=== PATIENT | male | born 1965 | race Caucasian/White ===

== ENCOUNTER → 2016-06-28 | Outpatient (CLI) | payer BC ==
[~2016-06-28] MED LIST: METO50TA7 PO; RANI150T3 PO; SIMV40TA2 PO; SYN112 PO
[2016-06-28 13:30] LABS: ALB/GLOB RATIO 1.3 (0.9-2); ALT/SGPT 40 U/L (12-78); AST/SGOT 17 U/L (15-37); BLOOD UREA NITROGEN 17 mg/dl (7-18); BUN/CREATININE RATIO 16.6 (10-20); CALCIUM 8.9 mg/dl (8.5-10.1); CARBON DIOXIDE 29 mmol/L (21-32); CHLORIDE 106 mmol/L (98-107); GLUCOSE 92 mg/dl (70-99); POTASSIUM 3.8 mmol/L (3.5-5.1); SODIUM 144 mmol/L (136-145)
[2016-06-28 13:41] LABS: ALKALINE PHOSPHATASE 89 U/L (45-117); CHOLESTEROL 130 mg/dl (0-200); CHOLESTEROL/HDL RATIO 2.7; HDL CHOLESTEROL 49 mg/dl; LDL CHOLESTEROL CALCULATED 68 mg/dl; TRIGLYCERIDES 63 mg/dl (0-150); VERY LOW DENSITY LIPOPROT CALC 13 mg/dl
== END | disposition home or self-care (01) ==
LOC: C.LABPVFM 08:40
PROVIDERS: ATTEND Family Medicine
DX: E03.9 Hypothyroidism, unspecified (principal); E78.2 Mixed hyperlipidemia; I10 Essential (primary) hypertension

== ENCOUNTER → 2017-03-31 | Outpatient (CLI) | payer BC ==
[2017-03-31 13:45] LABS: ALT/SGPT 36 U/L (12-78); AST/SGOT 17 U/L (15-37); BLOOD UREA NITROGEN 16 mg/dl (7-18); BUN/CREATININE RATIO 15.7 (10-20); CARBON DIOXIDE 27 mmol/L (21-32); CHLORIDE 106 mmol/L (98-107); CHOLESTEROL 149 mg/dl (0-200); CREATININE 0.99 mg/dl (0.60-1.40); GLUCOSE 93 mg/dl (70-99); POTASSIUM 4.1 mmol/L (3.5-5.1); SODIUM 140 mmol/L (136-145); TRIGLYCERIDES 86 mg/dl (0-150); VERY LOW DENSITY LIPOPROT CALC 17 mg/dl
[2017-03-31 13:56] LABS: ALB/GLOB RATIO 1.2 (0.9-2); ALKALINE PHOSPHATASE 78 U/L (45-117); CHOLESTEROL/HDL RATIO 2.7; HDL CHOLESTEROL 56 mg/dl; LDL CHOLESTEROL CALCULATED 76 mg/dl
== END | disposition home or self-care (01) ==
LOC: C.LABPVFM 09:49
PROVIDERS: ATTEND Family Medicine
DX: Z12.5 Encounter for screening for malignant neoplasm of prostate (principal); E03.9 Hypothyroidism, unspecified; E78.2 Mixed hyperlipidemia; I10 Essential (primary) hypertension

== ENCOUNTER → 2017-06-04 | Outpatient (CLI) | payer OTHER ==
[2017-06-04 13:24] LABS: BLOOD UREA NITROGEN 20 mg/dl (7-18); CALCIUM 9.1 mg/dl (8.5-10.1); CARBON DIOXIDE 28 mmol/L (21-32); GLUCOSE 91 mg/dl (70-99); POTASSIUM 3.7 mmol/L (3.5-5.1); SODIUM 138 mmol/L (136-145)
== END | disposition home or self-care (01) ==
LOC: C.LABPVFM 08:58
PROVIDERS: ATTEND Family Medicine
DX: I10 Essential (primary) hypertension (principal)

== ENCOUNTER 2017-08-08 07:56 | Emergency (ER) | payer OTHER ==
[~2017-08-08] VITALS: Ht 182.9 cm; Wt 113.9 kg
[~2017-08-08 07:56] MED LIST changes: -METO50TA7 PO; +METO50TA8 PO
[2017-08-08 08:01] VITALS: TEMP 36.7; Ht 182.9 cm; Wt 113.9 kg
[2017-08-08] MEDS ORDERED: CHLORHEXIDINE GLUCONATE 4% SOL 4OZ BTL ONE (08:30)
[2017-08-08] MEDS ORDERED: AMLO-110 PO (09:07)
[2017-08-08] MEDS ORDERED: ATOR-24 PO (09:07)
[2017-08-08] MEDS ORDERED: LEVO125T5 PO (09:07)
[2017-08-08] MEDS ORDERED: SILVER SULFADIAZINE 1% CR 50 GM JAR EXT ONE (09:22)
[2017-08-08] MEDS ORDERED: NURSING VERBAL MED ORDER ONE (09:30)
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
[2017-08-08] MEDS ORDERED: SILV1CRE73 TOP (09:53)
[2017-08-08] MEDS ORDERED: OXYC-57 PO (09:53)
[2017-08-08 10:35] VITALS: BP 149/82; PULSE 82; O2SAT 96
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
== END 2017-08-08 10:37 | disposition home or self-care (01) ==
LOC: C.EDB 07:59 → C.EDA 10:37
DX: T23.01 Burn of unspecified degree of thumb (nail) (principal); T31.0 Burns involving less than 10% of body surface; W40.9XXA Explosion of unspecified explosive materials, initial encounter; Y26.XXXA Exposure to smoke, fire and flames, undetermined intent, initial encounter; Z87.891 Personal history of nicotine dependence; Z79.899 Other long term (current) drug therapy

== ENCOUNTER 2020-12-17 18:53 | Observation (INO) ==
[2020-12-17] MEDS ORDERED: SODIUM CHLORIDE 0.9% 1000ML 1,000 ML IV ONE (20:56)
--- NOTE | 2020-12-17 21:06 | Emergency Department Note ---
History of Present Illness General Chief complaint: Hypertension Stated complaint: HIGH BLOOD PRESSURE, HEADACHES Time Seen by Provider: 12/17/20 20:46 Source: patient History of Present Illness Provider complaint: Headache and fatigue Onset (ago): week(s) 2 Location: head Radiation: non-radiation Severity: moderate Pain Consistency: + intermittent Maximum Pain Intensity: 5 Quality: + other (Throbbing) Relieved By: + medication (Ibuprofen) Associated symptoms: + headaches and + other (Fatigue); no chest pain, no cough, no fever/chills, no nausea/vomiting or no shortness of breath This is a 55-year-old male who presents with a 2-week history of fatigue and headache. He states the headache is located on the back of his head. It feels like a throbbing sensation. It is intermittent and present about every other day. He states it is better when he takes ibuprofen. No associated fever or vomiting. He also states that over the past 3 days he has been checking his blood pressure and has been elevated. He does have a history of hypertension and is on hydrochlorothiazide for it. He has been compliant with this medication. Previously he was on amlodipine but that was stopped 6 months ago due to swelling in his legs. He denies any chest discomfort or pain, cough or cold symptoms, shortness of breath, abdominal pain, vomiting, diarrhea, urinary symptoms or any prior history of headaches. Home Medications Medication Instructions Recorded Confirmed Type hydrochlorothiazide 25 mg tablet 25 mg PO DAILY #90 tab 05/21/20 12/17/20 Rx atorvastatin 40 mg tablet 40 mg PO HS 12/17/20 12/17/20 History famotidine 40 mg tablet 40 mg PO DAILY 12/17/20 12/17/20 History levothyroxine 125 mcg tablet 125 mcg PO QAM 12/17/20 12/17/20 History Allergies Allergy/AdvReac Type Severity Reaction Status Date / Time lisinopril Allergy Mild Cough Verified 12/17/20 22:45 Past Med/Surg History Medical History Benign hypertension Hyperlipidemia Hypothyroidism Surgical History H/O hernia repair Family History Denies family history of Ovarian cancer Prostate cancer Diabetes Myocardial infarction Breast cancer Colorectal cancer Hypertension Social History Smoking Status: Former smoker Second Hand Exposure: No; Hx Alcohol Use: Yes Hx Substance Use: No Preferred Language: Kyrgyz marital status: Single Current Living Situation: Other Current Living Situation Comment: [place] current occupational status: employed current occupation: [employer] Feels Safe at Home: Yes caffeine: Yes (coffee tea and soda ) Dental Care, Regularly: Yes Physical Activity Frequency: 3-4 Times per Week Seatbelt Use: always Sunscreen Use: Yes (Sometimes) Review of Systems See HPI for pertinent positives & negatives. and A total of 10 systems reviewed and were otherwise negative Physical Exam Vital Signs Vital Signs - 24 hr 12/17/20 19:21 12/17/20 21:25 12/17/20 21:40 Temperature 36.4 C L Temperature Source Temporal Artery Scan Pulse Rate 70 66 Pulse Rate [Apical] 60 Pulse Rate from SpO2 Sensor 65 Respiratory Rate 18 18 15 Blood Pressure 169/110 H 118/84 Blood Pressure [Left Arm] 149/110 H Blood Pressure [Right Arm] Blood Pressure Mean 129 95 Blood Pressure Mean [Left Arm] 123 Blood Pressure Mean [Right Arm] Blood Pressure Position [Left Arm] Blood Pressure Position [Right Arm] Pulse Oximetry 97 97 98 Oxygen Delivery Method Room Air Room Air Room Air Sepsis New/Unexplained Change in Mental Status N/A Sepsis Action Taken by Nursing No Action Required 12/17/20 21:56 12/17/20 22:00 12/17/20 22:03 Temperature Temperature Source Pulse Rate 67 74 Pulse Rate [Apical] Pulse Rate from SpO2 Sensor 67 71 Respiratory Rate 14 17 Blood Pressure 173/115 H 204/137 H Blood Pressure [Left Arm] 173/115 H Blood Pressure [Right Arm] 190/120 H Blood Pressure Mean 134 159 Blood Pressure Mean [Left Arm] 134 Blood Pressure Mean [Right Arm] 143 Blood Pressure Position [Left Arm] Sitting Blood Pressure Position [Right Arm] Sitting Pulse Oximetry 99 99 Oxygen Delivery Method Sepsis New/Unexplained Change in Mental Status Sepsis Action Taken by Nursing 12/17/20 22:25 12/17/20 22:30 12/17/20 23:00 Temperature Temperature Source Pulse Rate 67 65 62 Pulse Rate [Apical] Pulse Rate from SpO2 Sensor 67 66 62 Respiratory Rate 19 19 14 Blood Pressure 185/124 H 189/127 H 180/118 H Blood Pressure [Left Arm] Blood Pressure [Right Arm] Blood Pressure Mean 144 147 138 Blood Pressure Mean [Left Arm] Blood Pressure Mean [Right Arm] Blood Pressure Position [Left Arm] Blood Pressure Position [Right Arm] Pulse Oximetry 98 98 98 Oxygen Delivery Method Room Air Sepsis New/Unexplained Change in Mental Status Sepsis Action Taken by Nursing Constitutional: Vital signs reviewed. Eyes: Pupils are equal round reactive to light. Conjunctiva are noninjected. ENT: Pharynx is clear without erythema or exudate. Mucous membranes are moist. Neck supple without meningeal signs. Respiratory: Clear to auscultation bilaterally. Breath sounds are equal bilaterally. Cardiovascular: Regular rate and rhythm. No rubs or gallops. GI: Soft, nondistended and nontender. Bowel sounds are present. Musculoskeletal: No peripheral edema. No lower extremity tenderness. Integumentary: No cyanosis. or jaundice. Neurologic: The patient is awake and alert. Cranial nerves II-XII are intact. Motor is 5 out of 5 all extremities. Sensation is intact to light touch all extremities. Normal speech. No pronator drift. No limb ataxia. Psychiatric: Normal affect. Course Administered Medications Nitroglycerin (Nitroglycerin 2% Ointment 30gm Tube) 1 inch EXT Q6H NESTOR Stop: 01/16/21 22:59 Last Admin: 12/17/20 23:15 Dose: 1 inch Documented by: [id number] Discontinued Medications Sodium Chloride (Nss 1000ml) 1,000 mls @ 999 mls/hr IV .Q1H1M ONE Stop: 12/17/20 21:56 Last Infusion: 12/17/20 22:24 Dose: 0 mls/hr Documented by: [id number] Admin: 12/17/20 21:20 Dose: 999 mls/hr Documented by: [id number] Labetalol HCl (Labetalol Hcl Iv 5 Mg/Ml 20ml) 10 mg IV NOW STA Stop: 12/17/20 22:00 Last Admin: 12/17/20 22:05 Dose: 10 mg Documented by: [id number] Cosigned by: [id number] Metoprolol Succinate (Metoprolol Succ 25mg Ext Rel Tab) 25 mg PO NOW STA Stop: 12/17/20 23:03 Last Admin: 12/17/20 23:19 Dose: 25 mg Documented by: [id number] Critical Care Time Critical Care Time: Yes Total Critical Care Time: 35 I have personally spent approximately 35 minutes of critical care time in the direct management of this patient. This includes bedside care, interpretation of diagnostic studies, and testing, discussion with consultants, patient, and family members, and other required patient management activities. These minutes are in excess of all separately billable procedures. Medical Decision Making Differential Diagnosis Hypertensive urgency, medication noncompliance, migraine headache, intracranial mass, intracranial hemorrhage, endorgan damage Medical Records Attestation: I reviewed the patient's medical records. I did perform a limited focused review of portions of the patient's old chart on the electronic medical record. The patient has had no recent pertinent visits to this hospital. Home Medications Current Medication List: was personally reviewed by me Laboratory Data Attestation: I reviewed the patient's lab results. Result diagrams: 12/17/20 21:03 12/17/20 21:03 Lab Results 12/17/20 12/17/20 12/17/20 Range/Units 21:03 21:03 21:03 WBC 5.95 (4.8-10.8) K/uL RBC 5.27 (4.7-6.1) M/uL Hgb 15.7 (14.0-18.0) g/dL Hct 44.7 (42-52) % MCV 84.8 (80-100) fL MCH 29.8 (25-34) pg MCHC 35.1 (32-36) g/dL RDW Std Deviation 39.2 (36.4-46.3) fL RDW Coeff of Tanya 12.7 (11.5-14.5) % Plt Count 168 (130-400) K/uL MPV 10.1 (7.4-10.4) fL Immature Gran % (Auto) 0.0 % Neut % (Auto) 54.6 % Lymph % (Auto) 32.6 % [place] % (Auto) 10.3 % Eos % (Auto) 1.8 % Baso % (Auto) 0.7 % Neut # (Auto) 3.25 (1.4-6.5) K/uL Lymph # (Auto) 1.94 (1.2-3.4) K/uL [place] # (Auto) 0.61 H (0.11-0.59) K/uL Eos # (Auto) 0.11 (0-0.5) K/uL Baso # (Auto) 0.04 (0-0.2) K/uL Immature Gran # (Auto) 0.00 (0.00-0.02) K/uL Sodium 142 (136-145) mmol/L Potassium 3.4 L (3.5-5.1) mmol/L Chloride 108 H (98-107) mmol/L Carbon Dioxide 29 (21-32) mmol/L Anion Gap 5.0 (3-11) BUN 18 (7-18) mg/dl Creatinine 1.34 (0.6-1.4) mg/dl Est Cr Clr Drug Dosing 80.8 ml/min Est GFR ( Amer) 68.6 ml/min Est GFR (Non-Af Amer) 59.2 ml/min BUN/Creatinine Ratio 13.1 (10-20) Glucose 95 (70-99) mg/dl Calcium 9.1 (8.5-10.1) mg/dl Total Bilirubin 0.8 (0.2-1) mg/dl AST 24 (15-37) U/L ALT 47 (12-78) U/L Alkaline Phosphatase 75 (45-117) U/L Troponin I 0.301 H* (0-0.045) ng/ml Total Protein 7.2 (6.4-8.2) gm/dl Albumin 3.9 (3.4-5.0) gm/dl Globulin 3.3 (2.5-4.0) gm/dl Albumin/Globulin Ratio 1.2 (0.9-2) Lyme Disease IgG Ab Negative (Negative) Lyme Disease IgM Ab Negative (Negative) COVID-19 Eval Order SARS-CoV-2 (PCR) (Negative) 12/17/20 12/17/20 Range/Units 22:06 22:06 WBC (4.8-10.8) K/uL RBC (4.7-6.1) M/uL Hgb (14.0-18.0) g/dL Hct (42-52) % MCV (80-100) fL MCH (25-34) pg MCHC (32-36) g/dL RDW Std Deviation (36.4-46.3) fL RDW Coeff of Tanya (11.5-14.5) % Plt Count (130-400) K/uL MPV (7.4-10.4) fL Immature Gran % (Auto) % Neut % (Auto) % Lymph % (Auto) % [place] % (Auto) % Eos % (Auto) % Baso % (Auto) % Neut # (Auto) (1.4-6.5) K/uL Lymph # (Auto) (1.2-3.4) K/uL [place] # (Auto) (0.11-0.59) K/uL Eos # (Auto) (0-0.5) K/uL Baso # (Auto) (0-0.2) K/uL Immature Gran # (Auto) (0.00-0.02) K/uL Sodium (136-145) mmol/L Potassium (3.5-5.1) mmol/L Chloride (98-107) mmol/L Carbon Dioxide (21-32) mmol/L Anion Gap (3-11) BUN (7-18) mg/dl Creatinine (0.6-1.4) mg/dl Est Cr Clr Drug Dosing ml/min Est GFR ( Amer) ml/min Est GFR (Non-Af Amer) ml/min BUN/Creatinine Ratio (10-20) Glucose (70-99) mg/dl Calcium (8.5-10.1) mg/dl Total Bilirubin (0.2-1) mg/dl AST (15-37) U/L ALT (12-78) U/L Alkaline Phosphatase (45-117) U/L Troponin I (0-0.045) ng/ml Total Protein (6.4-8.2) gm/dl Albumin (3.4-5.0) gm/dl Globulin (2.5-4.0) gm/dl Albumin/Globulin Ratio (0.9-2) Lyme Disease IgG Ab (Negative) Lyme Disease IgM Ab (Negative) COVID-19 Eval Order Covid19 at [facility] SARS-CoV-2 (PCR) NEGATIVE (Negative) Imaging Data Radiologist's Impression: Patient: CESARIO MARR (Male) : 65 Status: ER Date: 12/17/20 21:35 Room #: History: ELEVATED BP HEADACHE Slices: 58 Priors: Tech: Gigi Covington @ [phone] Exams: CT HEAD Contrast: Accession Numbers: [id number] Referring Physician: KASHMIR DOSS Preliminary Findings Only See Final Report For Complete Findings CT HEAD: No acute intracranial process. Radiologist: Rich Shelton M.D. Study ready at 21:35 and initial results transmitted at 21:43 ECG Data Attestation: I personally reviewed and interpreted this ECG as follows: Indication: + other (Hypertension) Rate (beats per minute): 66 Rhythm: + normal sinus ECG [place]: + Normal ECG ST segments: no ST elevation ECG Findings: no PVCs MDM Narrative I did evaluate the patient as noted above. The patient is presenting with a 2- week history of fatigue and headaches. He also noticed that over the past 3 days his blood pressure is elevated. On exam he is in no acute distress. He is neurologically intact. IV access was established. I did place an order for continuous cardiac monitoring. The monitor showed normal sinus rhythm at a rate of 69 bpm. I did order and personally review the patient's 12-lead EKG as described above. There is no evidence of acute ischemia. I did order and review the patient's blood work as noted in the electronic medical record. CBC is unremarkable without leukocytosis or anemia. Electrolytes demonstrate a potassium of 3.4 but otherwise are unremarkable as well. Troponin is elevated slightly at 0.301. He denies having any chest discomfort or shortness of breath or symptoms consistent with ACS. I did order a CT of the head. I did review t he images myself as well as the radiology report as described above. There is no evidence of acute intracranial abnormality. I did reassess the patient. His blood pressure is still elevated and so I did treat him with labetalol 10 mg IV. I did discuss the test results with him and his and recommended hospitalization. Covid testing is negative. I did discuss case with the counter caser and the hospitalist was informed. On reassessment his blood pressure still elevated. I was going to treat him further with IV meds but the hospitalist team did see him already and ordered beta blockers as well as nitroglycerin for him. Impression & Plan Hypertensive emergency, Headache, Elevated troponin, Acute hypokalemia Discharge Plan Visit Data Chief Complaint: Hypertension Stated Complaint: HIGH BLOOD PRESSURE, HEADACHES ED Provider: Kashmir Doss Discharge Problem: Hypertensive emergency, Headache, Elevated troponin, Acute hypokalemia Patient Disposition: Admitted As Inpatient Discharge Instructions Interventions: ED Discharge Assessment Last Done: 12/17/20 23:33 Forms Stand Alone Forms: My [facility] Prescriptions Prescriptions: No Action hydrochlorothiazide 25 mg tablet 25 mg PO DAILY Qty: 90 RF: 3 atorvastatin 40 mg tablet 40 mg PO HS RF: 0 levothyroxine 125 mcg tablet 125 mcg PO QAM RF: 0 famotidine 40 mg Tablet 40 mg PO DAILY RF: 0 Referrals Referrals: Ritika Crawford MD [Primary Care Provider] -
[2020-12-17 21:20] LABS: Basophils # (auto) 0.04 K/uL (0-0.2); Basophils % (auto) 0.7 %; Eosinophils # (auto) 0.11 K/uL (0-0.5); Eosinophils % (auto) 1.8 %; Hematocrit (blood only) 44.7 % (42-52); Hemoglobin 15.7 g/dL (14.0-18.0); Lymphocytes # (auto) 1.94 K/uL (1.2-3.4); Lymphocytes % (auto) 32.6 %; Mean Corpuscular Hemoglobin 29.8 pg (25-34); Mean Corpuscular Hgb Conc 35.1 g/dL (32-36); Mean Corpuscular Volume 84.8 fL (80-100); Mean Platelet Volume 10.1 fL (7.4-10.4); Monocytes # (auto) 0.61 K/uL (0.11-0.59); Monocytes % (auto) 10.3 %; Neutrophils # (auto) 3.25 K/uL (1.4-6.5); Neutrophils % (auto) 54.6 %; Platelet Count 168 K/uL (130-400); RDW Coefficient of Variation 12.7 % (11.5-14.5); RDW Standard Deviation 39.2 fL (36.4-46.3); Red Blood Count 5.27 M/uL (4.7-6.1); White Blood Count 5.95 K/uL (4.8-10.8)
[2020-12-17 21:37] LABS: Albumin Level 3.9 gm/dl (3.4-5.0); BUN Creatinine Ratio 13.1 (10-20); Calcium 9.1 mg/dl (8.5-10.1); Creatinine Clr Calc Pharmacy 80.8 ml/min; Est GFR (African American) 68.6 ml/min; Est GFR (Non-African American) 59.2 ml/min; Potassium 3.4 mmol/L (3.5-5.1)
[2020-12-17 21:43] LABS: Albumin Globulin Ratio 1.2 (0.9-2); Bilirubin,Total 0.8 mg/dl (0.2-1); Globulin 3.3 gm/dl (2.5-4.0); Total Protein 7.2 gm/dl (6.4-8.2); Troponin I 0.301 ng/ml (0-0.045)
[2020-12-17] MEDS ORDERED: LABETALOL HCL IV 5 MG/ML 20ML IV STA (21:59)
[2020-12-17 22:11] LABS: Lyme Ab IgG w/WB Rflx Negative (Negative)
[2020-12-17 22:12] LABS: Lyme Ab IgM w/WB Rflx Negative (Negative)
[2020-12-17] MEDS ORDERED: METOPROLOL SUCC 25MG EXT REL TAB PO STA (23:02)
--- NOTE | 2020-12-17 23:03 | History & Physical Report ---
Date of Service December 17, 2020 Assessment & Plan (1) Elevated troponin: Plan: Elevated troponin/uncontrolled hypertension- The patient will be admitted to telemetry for serial cardiac enzymes, serial EKG's, cardiac rhythm monitoring and a 2-D echocardiogram with Dopplers. Troponin 0.301 upon admission Patient was given labetalol 10 mg IV by the ED with some improvement in blood pressure control, which did worsen somewhat with the addition of 1 L normal saline. Placed on Nitropaste 1 inch anterior chest wall every 6 hours Give metoprolol succinate 25 mg p.o. now Lopressor 5 mg IV every 4 hours as needed systolic blood pressure greater than 160 There is likely a significant anxiety component Consult cardiology (2) Uncontrolled hypertension: Plan: See above (3) Headache: Plan: Secondary to uncontrolled hypertension (4) Hypothyroidism: Plan: Continue levothyroxine 25 mcg daily (5) Hyperlipidemia: Plan: Continue to atorvastatin 40 mg daily. Check a fasting lipid panel and hemoglobin A1c (6) GERD (gastroesophageal reflux disease): Plan: Continue famotidine History of Present Illness Chief Complaint: The patient presents to the emergency department with complaint of elevated blood pressure, headaches and fatigue that initially began a few months ago, but have worsened over the past 2 weeks. Primary Care Provider: Ritika Crawford MD The patient is a 55-year-old male with a past medical history including hypertension, hypothyroidism, hyperlipidemia, and GERD who presents with symptoms noted above. He reports that a few months ago, when he has been paying closer attention to his diet, watching total calorie intake and salt intake, that his blood pressure was in the 120s over 80s. For the past few weeks, when he started to check it again due to headaches, his pressure has been in the 160s 170s over 100s 110s. 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 He has not been paying nearly as close attention to his diet as he had been. He denies any chest pain or shortness of breath, and says that he walks up to 12 miles a day at work. Pertinent laboratories: Potassium 3.4, creatinine 1.34, troponin 0.301, the patient is COVID-19 negative and Lyme disease negative. EKG shows normal sinus rhythm at 66, with no acute ST-T changes. Chest x-ray was not ordered, and is being ordered at this time. In the ED, patient received labetalol 10 mg IV x1, that was given 1 L normal saline by the ED. Allergies Allergy/AdvReac Type Severity Reaction Status Date / Time lisinopril Allergy Mild Cough Verified 12/17/20 22:45 Home Medications Medication Instructions Recorded Confirmed Type hydrochlorothiazide 25 mg tablet 25 mg PO DAILY #90 tab 05/21/20 12/17/20 Rx atorvastatin 40 mg tablet 40 mg PO HS 12/17/20 12/17/20 History famotidine 40 mg tablet 40 mg PO DAILY 12/17/20 12/17/20 History levothyroxine 125 mcg tablet 125 mcg PO QAM 12/17/20 12/17/20 History Past Med/Surg History Medical History Benign hypertension Hyperlipidemia Hypothyroidism Surgical History H/O hernia repair Family History Denies family history of Ovarian cancer Prostate cancer Diabetes Myocardial infarction Breast cancer Colorectal cancer Hypertension Social History Smoking Status: Former smoker Second Hand Exposure: No; Hx Alcohol Use: Yes Hx Substance Use: No Preferred Language: Setswana marital status: Single Current Living Situation: Other Current Living Situation Comment: Fiann current occupational status: employed current occupation: [employer] Feels Safe at Home: Yes caffeine: Yes (coffee tea and soda ) Dental Care, Regularly: Yes Physical Activity Frequency: 3-4 Times per Week Seatbelt Use: always Sunscreen Use: Yes (Sometimes) Review of Systems Review of Systems: The patient denies palpitations, shortness of breath, dyspnea on exertion, cough, lower extremity swelling, sore throat, fevers, chills, sweats, nausea, vomiting, diarrhea , constipation, abdominal pain, pelvic pain, blood in urine or stool, dysuria, urinary frequency or urgency, lightheadedness, dizziness, memory loss, loss of consciousness, rash, abnormal bruising or bleeding, imbalance, focal or generalized weakness, numbness or tingling in arms or legs, generalized arthralgias or myalgias, back or neck pain, or night sweats. The review of systems is otherwise negative other than for that already noted above, and at least 10 systems have been reviewed. Physical Exam Physical Exam: The patient is awake, alert and oriented 3, well developed and well nourished, normocephalic and atraumatic, lying in bed and in no acute distress. HEENT--PERRL, EOMI, mucous membranes and oropharynx normal. Neck--supple. No JVD. No bruits. Thyroid normal, trachea midline, no adenopathy. Heart--normal S1 and S2. No murmurs, rubs or gallops. Lungs--clear bilaterally, no respiratory distress, no accessory muscle use. Abdomen--normal bowel sounds and soft. Nontender. Nondistended. Extremities--no cyanosis or clubbing. No edema. Dermatologic--normal skin turgor, normal color, no abnormal lymph nodes, no rash. Neurologic--cranial nerves II through XII grossly intact. Rheumatologic--normal range of motion. Psychiatric--normal affect. Results & Data Results & Data ([facility]) Vital Signs (Past 12 Hours) Vital Signs Temp Pulse Pulse Resp BP BP BP 12/17/20 22:30 65 19 189/127 H 12/17/20 22:25 67 19 185/124 H 12/17/20 22:03 173/115 H 190/120 H 12/17/20 22:00 74 17 204/137 H 12/17/20 21:56 67 14 173/115 H 12/17/20 21:40 66 15 118/84 12/17/20 21:25 60 18 149/110 H 12/17/20 19:21 97.5 F L 70 18 169/110 H Pulse Ox 12/17/20 22:30 98 12/17/20 22:25 98 12/17/20 22:03 12/17/20 22:00 99 12/17/20 21:56 99 12/17/20 21:40 98 12/17/20 21:25 97 12/17/20 19:21 97 Laboratory Results Laboratory Results WBC 5.95 K/uL (4.8-10.8) 12/17/20 21:03 RBC 5.27 M/uL (4.7-6.1) 12/17/20 21:03 Hgb 15.7 g/dL (14.0-18.0) 12/17/20 21:03 Hct 44.7 % (42-52) 12/17/20 21:03 MCV 84.8 fL (80-100) 12/17/20 21:03 MCH 29.8 pg (25-34) 12/17/20 21:03 MCHC 35.1 g/dL (32-36) 12/17/20 21:03 RDW Std Deviation 39.2 fL (36.4-46.3) 12/17/20 21:03 RDW Coeff of Tanya 12.7 % (11.5-14.5) 12/17/20 21:03 Plt Count 168 K/uL (130-400) 12/17/20 21:03 MPV 10.1 fL (7.4-10.4) 12/17/20 21:03 Immature Gran % (Auto) 0.0 % 12/17/20 21:03 Neut % (Auto) 54.6 % 12/17/20:03 Lymph % (Auto) 32.6 % 12/17/20 21:03 [place] % (Auto) 10.3 % 12/17/20 21:03 Eos % (Auto) 1.8 % 12/17/20 21:03 Baso % (Auto) 0.7 % 12/17/20 21:03 Neut # (Auto) 3.25 K/uL (1.4-6.5) 12/17/20 21:03 Lymph # (Auto) 1.94 K/uL (1.2-3.4) 12/17/20:03 [place] # (Auto) 0.61 K/uL (0.11-0.59) H 12/17/20 21:03 Eos # (Auto) 0.11 K/uL (0-0.5) 12/17/20 21:03 Baso # (Auto) 0.04 K/uL (0-0.2) 12/17/20 21:03 Immature Gran # (Auto) 0.00 K/uL (0.00-0.02) 12/17/20 21:03 Sodium 142 mmol/L (136-145) 12/17/20 21:03 Potassium 3.4 mmol/L (3.5-5.1) L 12/17/20:03 Chloride 108 mmol/L (98-107) H 12/17/20 21:03 Carbon Dioxide 29 mmol/L (21-32) 12/17/20 21:03 Anion Gap 5.0 (3-11) 12/17/20 21:03 BUN 18 mg/dl (7-18) 12/17/20 21:03 Creatinine 1.34 mg/dl (0.6-1.4) 12/17/20 21:03 Est Cr Clr Drug Dosing 80.8 ml/min 12/17/20 21:03 Est GFR ( Amer) 68.6 ml/min 12/17/20 21:03 Est GFR (Non-Af Amer) 59.2 ml/min 12/17/20 21:03 BUN/Creatinine Ratio 13.1 (10-20) 12/17/20 21:03 Glucose 95 mg/dl (70-99) 12/17/20 21:03 Calcium 9.1 mg/dl (8.5-10.1) 12/17/20 21:03 Total Bilirubin 0.8 mg/dl (0.2-1) 12/17/20 21:03 AST 24 U/L (15-37) 12/17/20 21:03 ALT 47 U/L (12-78) 12/17/20 21:03 Alkaline Phosphatase 75 U/L (45-117) 12/17/20 21:03 Troponin I 0.301 ng/ml (0-0.045) H* 12/17/20 21:03 Total Protein 7.2 gm/dl (6.4-8.2) 12/17/20 21:03 Albumin 3.9 gm/dl (3.4-5.0) 12/17/20 21:03 Globulin 3.3 gm/dl (2.5-4.0) 12/17/20 21:03 Albumin/Globulin Ratio 1.2 (0.9-2) 12/17/20 21:03 Lyme Disease IgG Ab Negative (Negative) 12/17/20 21:03 Lyme Disease IgM Ab Negative (Negative) 12/17/20 21:03 COVID-19 Eval Order Covid19 at [facility] 12/17/20 22:06 SARS-CoV-2 (PCR) NEGATIVE (Negative) 12/17/20 22:06 ECG Additional Comments: CESARIO MARR ID:[id number] 17-DEC-2020 19:28:32 [facility]-EDSTAT ROUTINE RETRIEVAL Normal sinus rhythm Normal ECG When compared with ECG of 27-MAR-2014 10:59, No significant change was found 25mm/s 10mm/mV 150Hz 9.0.9 12SL 241 RIGOBERTO: 15 Unconfirmed Vent. rate 66 BPM MT interval 180 ms QRS duration 86 ms QT/QTc 416/436 ms P-R-T axes 67 35 43 1965 (55 yr) Male 113in Room: Loc Code Status & VTE Plan Code Status Full code VTE Prophylaxis Plan VTE Prophylaxis will be ordered: Yes PG Care Time/CCT Total # of Minutes Spent Total Time Spent with Patient: Total time spent is greater than 50% in coordination of care (as documented) at patient's floor/unit and/or counseling patient: Coding Level of Care Code INT OBSERVATION CARE 70M LVL 3 Diagnoses Uncontrolled hypertension I10 Headache R51.9 Headache chronicity pattern: acute headache Headache type: unspecified Intractability: not intractable Elevated troponin R77.8 Hypothyroidism E03.9 Hyperlipidemia E78.5 GERD (gastroesophageal reflux disease) K21.9 (1) Headache Headache chronicity pattern: acute headache Headache type: unspecified Intractability: not intractable Qualified Code(s): R51.9 - Headache, unspecified
[2020-12-17] MEDS: NITROGLYCERIN 2% OINTMENT 30GM TUBE EXT SCH (23:15)
[2020-12-17] MEDS ORDERED: POTASSIUM CHLORIDE CRTAB 20 MEQ TABCR PO STA (23:48)
[2020-12-17] MEDS ORDERED: METOPROLOL TARTRATE 1 MG/ML VIAL IV PRN (23:58)
[2020-12-18 00:03] LABS: Magnesium 2.2 mg/dl (1.8-2.4)
[2020-12-18] MEDS ORDERED: ONDANSETRON INJ 2 MG/ML 2 ML VIAL IV PRN (00:21)
[2020-12-18] MEDS ORDERED: ACETAMINOPHEN 325 MG TAB ONE (00:39)
[2020-12-18] MEDS: ACETAMINOPHEN 325 MG TAB PO PRN ×2 (00:41→05:21)
[2020-12-18] MEDS: NITROGLYCERIN 2% OINTMENT 30GM TUBE EXT SCH ×2 (05:26→13:42)
[2020-12-18] MEDS ORDERED: LEVOTHYROXINE SODIUM 125 MCG TABLET PO SCH (06:30)
--- NOTE | 2020-12-18 07:12 | CT Scan Report ---
HEAD CT NONCONTRAST CT DOSE: 537.48 mGy.cm HISTORY: Headache. TECHNIQUE: Multiaxial CT images of the head were performed without the use of intravenous contrast. A utomated exposure control was utilized for this study. A dose lowering technique was utilized adheri ng to the principles of ALARA. Comparison: None. Findings: The paranasal sinuses and mastoid air cells are clear. The calvarium and skull base are int act. The ventricles and sulci are within normal limits. There is no mass, hematoma, midline shift, or acute infarct. Impression: No acute intracranial abnormality. ACT 112: Negative or not required by law. Electronically signed by: Los Funes M.D. 12/18/2020 7:11 AM
[2020-12-18] MEDS: FAMOTIDINE 40 MG TABLET PO SCH ×2 (08:24→08:26)
[2020-12-18] MEDS ORDERED: METOPROLOL SUCC 25MG EXT REL TAB PO SCH (09:00)
[2020-12-18 09:03] LABS: Basophils # (auto) 0.02 K/uL (0-0.2); Basophils % (auto) 0.4 %; Eosinophils % (auto) 1.8 %; Hematocrit (blood only) 42.9 % (42-52); Hemoglobin 14.7 g/dL (14.0-18.0); Immature Granulocytes # (auto) 0.01 K/uL (0.00-0.02); Immature Granulocytes % (auto) 0.2 %; Lymphocytes # (auto) 1.46 K/uL (1.2-3.4); Lymphocytes % (auto) 26.8 %; Mean Corpuscular Hemoglobin 29.3 pg (25-34); Mean Corpuscular Hgb Conc 34.3 g/dL (32-36); Mean Corpuscular Volume 85.5 fL (80-100); Monocytes # (auto) 0.47 K/uL (0.11-0.59); Monocytes % (auto) 8.6 %; Neutrophils # (auto) 3.39 K/uL (1.4-6.5); Neutrophils % (auto) 62.2 %; Platelet Count 175 K/uL (130-400); RDW Coefficient of Variation 12.7 % (11.5-14.5); RDW Standard Deviation 39.8 fL (36.4-46.3); Red Blood Count 5.02 M/uL (4.7-6.1); White Blood Count 5.45 K/uL (4.8-10.8)
[2020-12-18 09:38] LABS: Albumin Level 3.5 gm/dl (3.4-5.0); Calcium 8.7 mg/dl (8.5-10.1); Creatinine Clr Calc Pharmacy 102.8 ml/min; Est GFR (African American) 92.2 ml/min; Est GFR (Non-African American) 79.5 ml/min; Potassium 3.8 mmol/L (3.5-5.1)
--- NOTE | 2020-12-18 09:42 | XRay Report ---
SINGLE VIEW CHEST CLINICAL HISTORY: Hypertension. Elevated troponin. FINDINGS: An AP, portable, upright chest radiograph is compared to study dated 05/23/2015. The heart i s top normal for projection. The pulmonary vasculature is noncongested. There is mild bibasilar atele ctasis. The lungs and pleural spaces are otherwise clear. No pneumothorax is seen. The bony thorax is grossly intact. IMPRESSION: No active disease in the chest. ACT 112: Negative or not required by law. Electronically signed by: Michael Jerome M.D. 12/18/2020 9:40 AM
[2020-12-18 09:43] LABS: Albumin Globulin Ratio 1.2 (0.9-2); Bilirubin,Total 1.6 mg/dl (0.2-1); Total Protein 6.5 gm/dl (6.4-8.2); Troponin I 0.301 ng/ml (0-0.045)
[2020-12-18] MEDS ORDERED: ISOSORBIDE MONO EXTENDED REL 30 MG TABCR PO ONE (12:26)
--- NOTE | 2020-12-18 13:04 | Cardiology Consultation ---
Date of Consultation December 18, 2020 Assessment & Plan (1) Uncontrolled hypertension: -agree with addition of metoprolol succinate. -may need to up titrate dose. -mild LVH noted on current echocardiogram. (2) Elevated troponin: -likely secondary to subendocardial ischemia (significant BP elevation in face of LVH). -will perform stress echocardiogram to rule out myocardial ischemia. (3) Hyperlipidemia: -continue atorvastatin. History of Present Illness Attending Physician: Haroon Marlow DO History of Present Illness Mr. Clark is a 55-year-old male admitted yesterday with accelerated hypertension and an elevated troponin I level. This consultation was ordered to assist in his cardiac management. The patient was in his usual state of health until several weeks prior to presentation. The patient began to note intermittent headaches and elevated home blood pressure recordings of 160-170/100-110. On the day of presentation, the patient noticed exertional dyspnea with minimal physical activity. He became quite concerned and presented to the emergency room for further care. Of note, blood pressure on presentation was 210/130. At no time has the patient experienced exertional chest pain. In fact, he walks up to 12 miles every day work and has never experienced limiting symptoms. He further denies syncope, presyncope, PND, orthopnea, palpitations, lower extremity edema, and claudication. He has never known of a cardiac event. He has never had a stress test nor cardiac catheterization. Currently, patient is resting comfortably in bed without complaints. Past medical and surgical history 1. Hypertension 2. Hypercholesterolemia 3. Hypothyroidism 4. GERD 5. Right inguinal hernia repair Social history Lives with his fiancee. 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 Quit tobacco use 20 years ago Occasional alcohol Family history Mother at 93 with CHF Father at 72 from emphysema A sister at a young age from a brain tumor Review of systems A 10 point review systems was undertaken and negative except for that described above. Allergies Allergy/AdvReac Type Severity Reaction Status Date / Time lisinopril Allergy Mild Cough Verified 12/17/20 22:45 Home Medications Medication Instructions Recorded Confirmed Type hydrochlorothiazide 25 mg tablet 25 mg PO DAILY #90 tab 05/21/20 12/17/20 Rx atorvastatin 40 mg tablet 40 mg PO HS 12/17/20 12/17/20 History famotidine 40 mg tablet 40 mg PO DAILY 12/17/20 12/17/20 History levothyroxine 125 mcg tablet 125 mcg PO QAM 12/17/20 12/17/20 History Patient History Medical History Benign hypertension Hyperlipidemia Hypothyroidism Surgical History H/O hernia repair Family History Denies family history of Ovarian cancer Prostate cancer Diabetes Myocardial infarction Breast cancer Colorectal cancer Hypertension Social History Smoking Status: Former smoker Second Hand Exposure: No; Hx Alcohol Use: Yes Alcohol type: other Hx Substance Use: No Preferred Language: Montserratian Communication Ability: Effective Therapy Director Required: No Beliefs That Will Affect Care: None marital status: Single Current Living Situation: Family Current Living Situation Comment: Fiance current occupational status: employed current occupation: [employer] Feels Safe at Home: Yes caffeine: Yes (coffee tea and soda ) Dental Care, Regularly: Yes Physical Activity Frequency: 3-4 Times per Week Seatbelt Use: always Sunscreen Use: Yes (Sometimes) Assistive Devices: None Physical Exam Physical Exam: In general this is an obese white male in no acute distress. HEENT exam is negative. Neck is supple with full carotid upstrokes. There are no carotid bruits. Jugular venous pressure is flat at 90. There is no thy romegaly. Cardiovascular exam reveals a regular rhythm with a normal S1 and S2. No S3, S4, or murmurs are noted. Lungs are clear without rales, rhonchi, or wheezes. Abdomen is soft and nontender without bruits. Extremities reveal intact radial artery and posterior tibial pulses bilaterally. There is no peripheral edema. Results & Data ([facility]) Vital Signs (Past 12 Hours) Vital Signs Temp Pulse Pulse Resp BP Pulse Ox 12/18/20 11:21 36.6 C 56 L 18 142/87 H 96 12/18/20 09:17 50 L 12/18/20 07:52 36.7 C 57 L 18 119/75 95 12/18/20 04:01 36.6 C 64 20 122/76 95 Laboratory Results CBC notes hemoglobin 14.7, crit 42.9, white count 5.4, platelet count [id number]. Electrolytes note a sodium of 141, potassium 3.8, chloride 109, bicarb 20, BUN 16, creatinine 1.05, glucose of 112. Initial troponin was 0.301 with follow-up values of 0.311 and 0.301. Diagnostic Findings EKG notes normal sinus rhythm without abnormalities. Echocardiogram notes normal left ventricular systolic function without wall motion abnormalities. Estimated ventricular ejection fraction is 60-65%. There was mild LVH. domestic maid is benign. PG Care Time/CCT Total # of Minutes Spent Total Time Spent with Patient: Total time spent is greater than 50% in coordination of care (as documented) at patient's floor/unit and/or counseling patient: Coding Level of Care Code 00136 Office/OBS Consult Lvl 4 Diagnoses Uncontrolled hypertension I10 Elevated troponin R77.8 Hyperlipidemia E78.5
--- NOTE | 2020-12-18 14:49 | Discharge Summary ---
Date of Service December 18, 2020 Admission HPI Per Admitting Provider The patient is a 55-year-old male with a past medical history including hypertension, hypothyroidism, hyperlipidemia, and GERD who presents with symptoms noted above. He reports that a few months ago, when he has been paying closer attention to his diet, watching total calorie intake and salt intake, that his blood pressure was in the 120s over 80s. For the past few weeks, when he started to check it again due to headaches, his pressure has been in the 160s 170s over 100s 110s. 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 He has not been paying nearly as close attention to his diet as he had been. He denies any chest pain or shortness of breath, and says that he walks up to 12 miles a day at work. Pertinent laboratories: Potassium 3.4, creatinine 1.34, troponin 0.301, the patient is COVID-19 negative and Lyme disease negative. EKG shows normal sinus rhythm at 66, with no acute ST-T changes. Chest x-ray was not ordered, and is being ordered at this time. In the ED, patient received labetalol 10 mg IV x1, that was given 1 L normal saline by the ED. Discharge Data Allergies Allergy/AdvReac Type Severity Reaction Status Date / Time lisinopril Allergy Mild Cough Verified 12/17/20 22:45 Consultations 12/17/20 21:53 ED Decision to Admit Stat 12/18/20 00:21 Consult Cardiology Routine Ordered Studies 12/17/20 20:56 CT head/brain wo con Urgent Hospital Course (1) Elevated troponin: Elevated troponin/uncontrolled hypertension- The patient will be admitted to telemetry for serial cardiac enzymes, serial EKG's, cardiac rhythm monitoring and a 2-D echocardiogram with Dopplers. Troponin 0.301 upon admission Patient was given labetalol 10 mg IV by the ED with some improvement in blood pressure control, which did worsen somewhat with the addition of 1 L normal saline. Placed on Nitropaste 1 inch anterior chest wall every 6 hours Give metoprolol succinate 25 mg p.o. now Lopressor 5 mg IV every 4 hours as needed systolic blood pressure greater than 160 There is likely a significant anxiety component Consult cardiology (2) Uncontrolled hypertension: See above (3) Headache: Secondary to uncontrolled hypertension (4) Hypothyroidism: Continue levothyroxine 25 mcg daily (5) Hyperlipidemia: Continue to atorvastatin 40 mg daily. Check a fasting lipid panel and hemoglobin A1c (6) GERD (gastroesophageal reflux disease): Continue famotidine Discharge Plan Discharge Items Patient Disposition: Home - Self-Care Reason For Visit: ELEVATED TROPONIN Discharge Diagnosis: Accelerated hypertension Elevated troponin negative stress echocardiogram Condition on Discharge: Good Goals: blood pressure control low sodium diet, Mediterranean diet regular exercise, 4 x a week, 30 minutes at a time Activity: Resume your previous activity Driving/Machine Use: No limitations Weightbearing: Full weightbearing Non-emergency contact: Primary Care Provider Call non-emergency contact if: you have any medication questions Follow-up/Referrals: Ritika Crawford MD [Primary Care Provider] - (one week, blood pressure check) Diet: Low Fat and Low Sodium (2gm) Addtl Attending Provider Instructions: Medications: - AMLODIPINE: 5mg in the evening, can start this evening common adverse effect is swelling/edema in legs, let your PCP know if this happens Hypertension, headache, elevated heart enzyme elevated blood pressure likely combination of stress, poor diet elevated heart enzymes are due to the high blood pressure, no evidence that this was a heart attack you had a negative stress echocardiogram today going forward, take your hydrochlorothiazide and new medications, Amlodipine follow a low sodium diet, Mediterranean diet (olive oil, fish, vegetables) follow up next week for blood pressure check with PCP continue to get regular exercise, healthy stress relief Pending Studies at Discharge: No Stand-Alone Forms: My [facility] 6APT, Smoking Cessation Medications and DC Order Prescriptions: New amlodipine 5 mg tablet 5 mg PO QPM Qty: 30 RF: 3 Continued hydrochlorothiazide 25 mg tablet 25 mg PO DAILY Qty: 90 RF: 3 atorvastatin 40 mg tablet 40 mg PO HS RF: 0 levothyroxine 125 mcg tablet 125 mcg PO QAM RF: 0 famotidine 40 mg Tablet 40 mg PO DAILY RF: 0 Discharge Orders: Discharge Order (Routine); Ordered 12/18/20 Ordered By: Haroon Marlow Admission Data Admit Date/Time: 12/17/20 23:03 Attending Provider: Haroon Marlow Admit Provider: Henrik Dawson Primary Care Provider: Ritika Crawford Other Providers: Henrik Dawson ; Rai Rider Coding Diagnoses Elevated troponin R77.8 Uncontrolled hypertension I10 Headache R51.9 Headache chronicity pattern: acute headache Headache type: unspecified Intractability: not intractable Hypothyroidism E03.9 Hyperlipidemia E78.5 GERD (gastroesophageal reflux disease) K21.9
--- NOTE | 2020-12-18 16:14 | XCELERA ---
[id number]
--- NOTE | 2020-12-18 16:46 | Electrocardiogram Report ---
Test Reason : Blood Pressure : / mmHG Vent. Rate : 066 BPM Atrial Rate : 066 BPM P-R Int : 180 ms QRS Dur : 086 ms QT Int : 416 ms P-R-T Axes : 067 035 043 degrees QTc Int : 436 ms Normal sinus rhythm Normal ECG When compared with ECG of 27-MAR-2014 10:59, No significant change was found Confirmed by Nile Oshea ([id number]) on 12/18/2020 4:45:43 PM Referred By: REFERRED SELF Confirmed By:Nile Oshea
--- NOTE | 2020-12-18 16:55 | Electrocardiogram Report ---
Test Reason : Blood Pressure : / mmHG Vent. Rate : 054 BPM Atrial Rate : 054 BPM P-R Int : 178 ms QRS Dur : 084 ms QT Int : 454 ms P-R-T Axes : 052 030 039 degrees QTc Int : 430 ms Sinus bradycardia Otherwise normal ECG When compared with ECG of 17-DEC-2020 19:28, (unconfirmed) No significant change was found Confirmed by Nile Oshea ([id number]) on 12/18/2020 4:55:05 PM Referred By: REFERRED SELF Confirmed By:Nile Oshea
[2020-12-18] MEDS ORDERED: ATORVASTATIN 40 MG TAB PO SCH (21:00)
--- NOTE | 2020-12-19 11:30 | XCELERA ---
[id number]
== END 2020-12-18 15:36 | disposition home or self-care (01) ==
LOC: 2S 18:53 → ED 18:53 → SUATTDRO 23:03 → 2S 23:33
DX: Z88.8 Allergy status to other drugs, medicaments and biological substances; Z20.822 Contact with and (suspected) exposure to COVID-19; Z79.899 Other long term (current) drug therapy; E78.00 Pure hypercholesterolemia, unspecified; K21.9 Gastro-esophageal reflux disease without esophagitis; R51.9 Headache, unspecified; E78.5 Hyperlipidemia, unspecified; R79.89 Other specified abnormal findings of blood chemistry; E03.9 Hypothyroidism, unspecified; I16.1 Hypertensive emergency; Z82.49 Family history of ischemic heart disease and other diseases of the circulatory system; Z79.890 Hormone replacement therapy; Z87.891 Personal history of nicotine dependence; E87.6 Hypokalemia